=== PATIENT | female | born 1995 | race African-American/Black ===

== ENCOUNTER 2019-10-11 17:08 | Emergency (ER) | payer BC ==
[2019-10-11] MEDS ORDERED: METOCLOPRAMIDE HCL 10 MG TABLET PO ONE (17:36)
--- NOTE | 2019-10-11 17:37 | ER Document Report ---
ED Medical Screen (RME) - General Stated Complaint: NAUSEA/VOMITING/CRAMPING Time Seen by Provider: 10/11/19 17:32 Mode of Arrival: Ambulatory Information source: Patient Notes: This 24-year-old female approximately 9 weeks G2, P1 presents with nausea vomiting and abdominal cramps. Reports she had the nausea and was frequently dehydrated with her first also. Denies vaginal bleeding denies vaginal discharge. Reports she was able to eat pizza but she feels very nauseated I have greeted and performed a rapid initial assessment of this patient. A comprehensive ED assessment and evaluation of the patient, analysis of test results and completion of the medical decision making process will be conducted by additional ED providers. Dictation of this chart was performed using voice recognition software; therefore, there may be some unintended grammatical errors. - Related Data Allergies/Adverse Reactions: No Known Allergies Allergy (Verified 10/11/19 17:33) Physical Exam - Vital signs Vitals: Temp Pulse Resp BP Pulse Ox 98.7 F 90 18 130/74 H 100 10/11/19 17:19 10/11/19 17:19 10/11/19 17:19 10/11/19 17:19 10/11/19 17:19 Course - Vital Signs Vital signs: Temp Pulse Resp BP Pulse Ox 98.7 F 90 18 130/74 H 100 10/11/19 17:19 10/11/19 17:19 10/11/19 17:19 10/11/19 17:19 10/11/19 17:19
[2019-10-11 18:09] LABS: ABSOLUTE LYMPHOCYTES (AUTO) 1.5 10^3/uL (0.5-4.7); MEAN CORPUSCULAR VOLUME 92 fl (80-97); PLATELET COUNT 311 10^3/uL (150-450); SEGMENTED NEUTROPHILS % (AUTO) 63.8 % (42-78); TOTAL CELLS COUNTED % (AUTO) 100 %
[2019-10-11 18:13] LABS: ABSOLUTE MONOCYTES (AUTO) 0.3 10^3/uL (0.1-1.4); ABSOLUTE NEUT (AUTO) 3.4 10^3/uL (1.7-8.2); BASOPHILS % (AUTO) 0.6 % (0-2); EOSINOPHILS % (AUTO) 0.6 % (0-6); HEMATOCRIT 37.7 % (36.0-47.0); HEMOGLOBIN 12.9 g/dL (12.0-15.5); LYMPHOCYTES % (AUTO) 28.5 % (13-45); MEAN CORPUSCULAR HEMOGLOBIN 31.4 pg (27.0-33.4); MEAN CORPUSCULAR HGB CONC 34.2 g/dL (32.0-36.0); MONOCYTES % (AUTO) 6.5 % (3-13); RED BLOOD COUNT 4.11 10^6/uL (3.72-5.28); RED CELL DISTRIBUTION WIDTH 13.7 % (11.5-14.0); WHITE BLOOD COUNT 5.3 10^3/uL (4.0-10.5)
[2019-10-11 18:27] LABS: ALBUMIN 3.9 g/dL (3.5-5.0); ALKALINE PHOSPHATASE 62 U/L (38-126); ANION GAP 11 (5-19); ASPARTATE AMINO TRANSFERASE 17 U/L (14-36); BILIRUBIN,DIRECT 0.1 mg/dL (0.0-0.4); BILIRUBIN,TOTAL 0.4 mg/dL (0.2-1.3); BLOOD UREA NITROGEN 4 mg/dL (7-20); CALCIUM 9.7 mg/dL (8.4-10.2); CARBON DIOXIDE 24 mmol/L (22-30); CHLORIDE 103 mmol/L (98-107); GLUCOSE 94 mg/dL (75-110); POTASSIUM 3.7 mmol/L (3.6-5.0)
--- NOTE | 2019-10-11 18:34 | RADIOLOGY REPORT (SQ) ---
EXAM DESCRIPTION: U/S OB TRANSVAGINAL W/O DOP COMPLETED DATE/TIME: 10/11/2019 6:23 pm REASON FOR STUDY: abd cramp 9 weeks prego COMPARISON: None. TECHNIQUE: Transvaginal static and realtime grayscale images acquired of the pelvis. Additional olga cted spectral and color Doppler images recorded. All images stored on PACs. bHCG: Pending. CLINICAL DATES: 9 weeks, 1 day LIMITATIONS: None. FINDINGS: FETUS: Single Living intrauterine . ULTRASOUND EGA: 9 weeks, 3 days ULTRASOUND LIZZIE: 05/12/2020 EFW: Not applicable less than 20 weeks. CRL: 2.7 cm FHR: 180 beats per minute. SURVEY: Too early to assess. AMNIOTIC FLUID: Adequate amount. PLACENTA: Not yet developed due to early gestation. SUBCHORIONIC BLEED: No. SIZE OF BLEED: Not applicable. UTERUS: No masses. No anomalies. CERVICAL LENGTH: 3.1 cm Closed. RIGHT ADNEXA: Normal size and morphology. No adnexal free fluid. No adnexal masses. LEFT ADNEXA: Normal size and morphology. No adnexal free fluid. No adnexal masses. FREE FLUID: None. OTHER: No other significant finding. IMPRESSION: LIVING INTRAUTERINE . EGA 9 weeks, 3 days Trimester of : First trimester - 0 to 13 weeks. TECHNICAL DOCUMENTATION: JOB ID: [id number]- All Rights Reserved Reading location - IP/workstation name: [email or web address]
--- NOTE | 2019-10-11 22:39 | ER Document Report ---
ED General - General Chief Complaint: Nausea/Vomiting Stated Complaint: NAUSEA/VOMITING/CRAMPING Time Seen by Provider: 10/11/19 17:32 Mode of Arrival: Ambulatory Notes: 24-year-old 2 para 1 presents to the emergency department with a complaint of nausea vomiting and cramping abdominal pain. She denies bleeding or passage of tissue. She is approximately 9 weeks followed by [employer]. She was unable to keep down fluids and came to the emergency department to get treatment. She denies dysuria or urinary related symptoms. TRAVEL OUTSIDE OF THE [place] IN LAST 30 DAYS: No - Related Data Allergies/Adverse Reactions: No Known Allergies Allergy (Verified 10/11/19 17:33) Home Medications: valtrex. Past Medical History - General Information source: Patient - Social History Smoking Status: Never Smoker Chew tobacco use (# tins/day): No Frequency of alcohol use: None Drug Abuse: None Family History: Reviewed & Not Pertinent Patient has suicidal ideation: No Patient has homicidal ideation: No Review of Systems - Review of Systems Notes: Constitutional: Negative for fever. HENT: Negative for sore throat. Eyes: Negative for visual changes. Cardiovascular: Negative for chest pain. Respiratory: Negative for shortness of breath. Gastrointestinal: + Vomiting, no diarrhea. Genitourinary: Negative for dysuria. Musculoskeletal: Negative for back pain. Skin: Negative for rash. Neurological: Negative for headaches, weakness or numbness. 10 point ROS negative except as marked above and in HPI. Physical Exam - Vital signs Vitals: Temp Pulse Resp BP Pulse Ox 98.7 F 90 18 130/74 H 100 10/11/19 17:19 10/11/19 17:19 10/11/19 17:19 10/11/19 17:19 10/11/19 17:19 - Notes Notes: PHYSICAL EXAMINATION: Physical Exam: General: Well-nourished well-developed female in no acute distress HEENT: NC/AT, pupils equal round and reactive to light, MM moist,nares clear, Neck: supple, no adenopathy, no masses. Lungs: clear, no wheezing, no rales no rhonchi CVS: Regular rate and rhythm no murmur gallop or rub Abdomen: Soft active nontender, no masses, no hepatosplenomegaly Ext: No edema clubbing or cyanosis. Neuro: Alert and responsive, moving all 4 extremities on command, cranial nerves intact. Skin: Intact no open lesions, no rash PSYCH: Normal mood, normal affect. Course - Vital Signs Vital signs: Temp Pulse Resp BP Pulse Ox 98.4 F 85 17 116/72 99 10/11/19 23:10 10/11/19 23:10 10/11/19 23:10 10/11/19 23:10 10/11/19 23:10 - Laboratory Result Diagrams: 10/11/19 17:53 10/11/19 17:53 Laboratory results interpreted by me: 10/11/19 17:53 BUN 4 L Beta HCG, Quant 816989.00 H 10/11/19 22:38 I have reviewed laboratory data and used this information for the treatment decisions regarding the patient. 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 Prescriptions: Doxylamine Succinate/Vit B6 [Loli Fitzgerald 10-10 mg Tablet] 1 each PO TIDHS #14 tablet. Forms: Return to Work
[2019-10-11 23:15] VITALS: BP 116/72
== END 2019-10-11 23:09 | disposition home or self-care (01) ==
LOC: ER 17:08
DX: O21.9 Vomiting of pregnancy, unspecified (principal); O26.891 Other specified pregnancy related conditions, first trimester; R10.9 Unspecified abdominal pain; Z3A.00 Weeks of gestation of pregnancy not specified; Z79.899 Other long term (current) drug therapy
CPT/HCPCS: 36415; 76817; 80053; 84702; 85025; 99284